=== PATIENT | male | born 1990 | race American Indian/Alaskan Native ===

== ENCOUNTER 2022-01-16 09:42 | Emergency (ER) | payer SELFPAY ==
[2022-01-16 10:04] VITALS: BP 111/63
--- NOTE | 2022-01-16 11:54 | Ultrasound Report ---
ULTRASOUND SCROTUM INDICATION / CLINICAL INFORMATION: testicular pain. COMPARISON: None available. FINDINGS -- RIGHT TESTIS: Size = 3.4 x 2.2 x 3.0 cm. - Appearance: No significant abnormality. - Cyst or Mass: None. - Color Doppler Flow: No significant abnormality. EPIDIDYMIS: No significant abnormality. HYDROCELE: None. VARICOCELE: None demonstrated. FINDINGS -- LEFT TESTIS: Size = 2.6 x 2.5 x 2.1 cm. - Appearance: No significant abnormality. - Cyst or Mass: None. - Color Doppler Flow: No significant abnormality. EPIDIDYMIS: Left-sided epididymis appears enlarged with increased flow. There is also a small epidid ymal cyst. HYDROCELE: None. VARICOCELE: None demonstrated. ADDITIONAL FINDINGS: None. IMPRESSION: 1. Findings suggesting left-sided epididymitis. 2. Testicles appear normal. Signer Name: Juventino Alexander MD Signed: 01/16/2022 11:50 AM Workstation Name: [email or web address]
--- NOTE | 2022-01-16 13:37 | Emergency Department Report ---
ED Dysuria HPI - HPI Chief Complaint: Urogenital-Male Stated Complaint: SWOLLEN SCROTUM Time Seen by Provider: 01/16/22 10:08 Duration: 2 Days Location of Discomfort: Suprapubic Severity: Mild Symptoms: Dysuria: Yes, Frequency: No, Suprapubic Pain: No, Flank Pain: No, Fever: No, Hematuria: No, Abdominal Pain: No, Previous UTI's: No Other History: 31 YO COMES TO ER WITH CO SWELLING AND TENDERNESS LEFT TESTICLE. NO DISCHARGE. NO ABD PAIN. NO BACK PAIN. NO DYSURIA ED Review of Systems ROS: Stated complaint: SWOLLEN SCROTUM Other details as noted in HPI Comment: All other systems reviewed and negative ED Past Medical Hx - Past Medical History Previous Medical History?: No - Surgical History Past Surgical History?: No - Family History Family history: no significant - Social History Smoking Status: Current Every Day Smoker Substance Use Type: Alcohol - Medications Home Medications: Home Medications Medication Instructions Recorded Confirmed Last Taken Type DOXYCYCLINE Hyclate [Vibramycin 100 mg PO Q12HR #20 capsule 01/16/22 Unknown Rx CAP] Dysuria Exam - Exam General: Vital signs noted. No distress. Alert and acting appropriately. Exam: Yes Moist Mucous Membranes, No CVA Tenderness, No Abdominal Tenderness, No Rigidity or Guarding ED Course Vital Signs 01/16/22 10:01 Temperature 97.1 F L Pulse Rate 68 Respiratory 18 Rate Blood Pressure 111/63 [Right] O2 Sat by Pulse 97 Oximetry ED Medical Decision Making - Radiology Data Radiology results: report reviewed, image reviewed SEE REPORT - Medical Decision Making Vital Signs 01/16/22 10:01 Temperature 97.1 F L Pulse Rate 68 Respiratory 18 Rate Blood Pressure 111/63 [Right] O2 Sat by Pulse 97 Oximetry US NOTED NO PENILE D/C NOT SEXUALLY ACTIVE DC HOME WITH RX FOR DOXY AND UROLOGY FOLLOW UP. PT VERBALIZES UNDERSTANDING OF DC PLAN OF CARE INCLUDING DIET, MEDS,, ACTIVITY AND FOLLOW UP.. - Differential Diagnosis RO UTI/TESTIC.TORSION/STD Critical care attestation.: If time is entered above; I have spent that time in minutes in the direct care of this critically ill patient, excluding procedure time. ED Disposition Clinical Impression: Epididymitis Disposition: HOME / SELF CARE / HOMELESS Is pt being admited?: No Does the pt Need Aspirin: No Condition: Stable Instructions: Epididymitis, Epididymitis (ED) Additional Instructions: meds as ordered Prescriptions: DOXYCYCLINE Hyclate [Vibramycin CAP] 100 mg PO Q12HR #20 capsule Referrals: KIARRA MURPHY MD [Primary Care Provider] - 3-5 Days HIEN FERNANDEZ MD [Staff Physician] - 3-5 Days Forms: Work/School Release Form(ED) Time of Disposition: 14:18
== END 2022-01-16 15:00 | disposition home or self-care (01) ==
LOC: ED 09:42
DX: N45.1 Epididymitis (principal); F17.200 Nicotine dependence, unspecified, uncomplicated; Z72.89 Other problems related to lifestyle
CPT/HCPCS: 93975; 99283